=== PATIENT | male | born 1995 | race Two or more races ===

== ENCOUNTER 2023-10-08 10:35 | Emergency (ER) | payer OTHER ==
[~2023-10-08] VITALS: Ht 180.3 cm; Wt 101.0 kg
[2023-10-08 13:08] VITALS: BP 116/92; PULSE 60; RESP 15; TEMP 98.1; O2SAT 99
== END 2023-10-08 13:45 | disposition home or self-care (01) ==
LOC: ER 10:35
DX: S00.03XA Contusion of scalp, initial encounter (principal); W22.8XXA Striking against or struck by other objects, initial encounter; Y93.89 Activity, other specified; Y92.89 Other specified places as the place of occurrence of the external cause; Y99.8 Other external cause status
CPT/HCPCS: 70450